=== PATIENT | male | born 1945 | race Caucasian/White ===

== ENCOUNTER 2020-07-08 15:43 | Emergency (ER) | payer MEDICARE, OTHER, SELFPAY ==
--- NOTE | 2020-07-08 15:51 | ECG_ITS ---
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 Measurements Intervals [place] Rate: 79 P: 31 SC: 142 QRS: 33 QRSD: 93 T: 23 QT: 351 QTc: 403 Interpretive Statements SINUS RHYTHM WITH OCCASIONAL VENTRICULAR PREMATURE COMPLEXES NONSPECIFIC T-WAVE ABNORMALITY Compared to ECG 02/18/2019 08:07:19 No significant changes Electronically Signed On 07-08-2020 18:21:41 METAL PATTERNMAKER by Delmar Muhammad M.D. [id number]
--- NOTE | 2020-07-08 15:51 | XRR_ITS ---
PROCEDURE INFORMATION: Exam: XR Chest, 1 View Exam date and time: 07/08/2020 5:32 PM Age: 75 years old Clinical indication: Shortness of breath; Additional info: SOB TECHNIQUE: Imaging protocol: XR of the chest Views: 1 view. COMPARISON: CR Chest 1 [place] [id number] 02/18/2019 8:28 AM FINDINGS: Lungs: Diminished inspiratory effort. Potential small focus of patchy ground-glass interstitial lung disease left lung base which could reflect active interstitial pneumonitis. Evidence of antecedent granulomatous disease. Pleural space: Unremarkable. No pleural effusion. No pneumothorax. Heart/Mediastinum: Unremarkable. No cardiomegaly. Bones/joints: Unremarkable. XR/XR chest 1V portable [id number] IMPRESSION: 1. Diminished inspiratory effort. 2. Potential small focus of patchy ground-glass interstitial lung disease left lung base which could reflect active interstitial pneumonitis.
[2020-07-08 16:01] VITALS: BP 134/91; PULSE 96; RESP 16; TEMP 38.8; O2SAT 93; BMI 25.7
--- NOTE | 2020-07-08 17:26 | W.ED.COVID ---
HPI - COVID General: Chief Complaint: COVID symptoms Stated Complaint: sob/covid +/related complications Time Seen by Provider: 07/08/20 17:16 Source: patient Mode of arrival: ambulatory Limitations: no limitations Triage information: Has fever, cough or shortness of breath. Exposure to COVID + person last 14 days History of Present Illness: HPI Narrative: 75 yo male that states he tested positive for covid today. he has been having symptoms over the lasat 10 days. he states he has had a fever along with body aches. he has had no n/v he has had a cough and mild sob. Pt is in no distress here and pulse ox is 97 COVID 19 common symptoms: positive fever(s), chills, non-productive cough, dyspnea and body aches; negative headache(s), throat pain, nausea, vomiting or diarrhea COVID 19 other sytmptoms: negative chest pain COVID Results: No Data to Display Review of Systems Const: Reports: fever(s), chills and body aches Eyes: Denies: blurry vision or eye discomfort ENMT: Denies: throat pain or dental pain Card: Denies: chest pain Resp: Reports: dyspnea and non-productive cough GI: Denies: abdominal pain, nausea, vomiting or diarrhea : Denies: dysuria Musc: Denies: neck pain or back pain Skin/Breast: Denies: rash Neuro: Denies: headache(s) Psych: Denies: depression [place]/Lymph: Denies: easy bruising All/Imm: Denies: urticaria PFSH ED PFSH: Medical History ASHD (arteriosclerotic heart disease) Coronary artery disease HTN (hypertension) PVC (premature ventricular contraction) Surgical History S/P PTCA (percutaneous transluminal coronary angioplasty) Family History Father CAD (coronary artery disease) Sister Diabetes Social History Smoking and tobacco status: former smoker History of recent travel: No Physical Exam Const: COMMON NORMALS: no acute distress, patient oriented x3 and healthy appearing HENMT: COMMON NORMALS: normocephalic and atraumatic HEAD & SCALP: normocephalic and atraumatic Eye: COMMON NORMALS: Equal, round and reactive pupils present and EOMs intact bilaterally PUPIL: Yes Equal, round and reactive pupils present Neck/C-Spine: COMMON NORMALS: full ROM and supple Chest: COMMONS NORMALS: normal inspection of the chest and normal palpation of entire chest wall Resp: COMMON NORMALS: normal respiratory effort, No retractions, No use of accessory muscles and clear to auscultation bilaterally AUSCULTATION: clear to auscultation bilaterally Cardio: COMMON NORMALS: regular rate, regular rhythm and No murmurs present (Cardio) RATE: regular rate RHYTHM: regular rhythm GI: COMMON NORMALS: Normal to inspection, nondistended, normoactive bowel sounds present, Soft to palpation, non-tender and no masses PALPATION: Yes Soft to palpation Extremity: COMMON NORMALS: normal to inspection and full ROM Neuro: COMMON NORMALS: patient oriented x3, moves all extremities and no focal motor deficits Psych: COMMON NORMALS: mental status grossly normal, Normal thought process present and cooperative THOUGHT PROCESS: Normal thought process present Skin: COMMON NORMALS: no rashes or lesions noted and no wounds GENERAL SKIN EXAM: no rashes or lesions noted Course Vital Signs: Vital signs: Vital Signs Temperature 101.9 F H 07/08/20 16:01 Pulse Rate 96 07/08/20 16:01 Respiratory Rate 16 07/08/20 16:01 Blood Pressure 134/91 07/08/20 16:01 Pulse Oximetry 92 07/08/20 17:31 MDM - COVID MDM Narrative: Medical decision making narrative: Patient presents here with Covid pneumonia. Patient is well-appearing here and is inflammatory markers are normal and he has no signs of pulmonary embolism. Patient's pulse ox here has been 97% on room air. We will start him on Keflex and Decadron. He is stable for discharge is to monitor his oxygen at home and return if worsening. He is to follow-up with his PCP. Lab Data: Labs: Lab Results 07/08/20 07/08/20 07/08/20 Range/Units 17:44 17:44 17:44 WBC 7.4 (4.0-10.0) 10^3/ uL RBC 5.05 (4.1-5.3) 10^6/u L Hgb 14.2 (11.7-16.6) g/dL Hct 44.6 (42.0-52.0) % MCV 88.3 (80-94) fL MCH 28.1 (28.0-34.0) pg MCHC 31.8 (30.0-36.0) g/dL RDW 13.4 (12.1-15.1) % Plt Count 259 (130-400) 10^3/c mm MPV 10.0 (7.4-10.4) fL Neut % (Auto) 80.0 % Lymph % (Auto) 13.1 % [place] % (Auto) 6.3 % Eos % (Auto) 0.0 % Baso % (Auto) 0.3 % Neut # (Auto) 5.93 (1.8-7.7) 10^3/u L Lymph # (Auto) 1.0 (0.8-4.8) 10^3/u L [place] # (Auto) 0.5 (0.2-0.9) 10^3/u L Eos # (Auto) 0.0 (0.0-0.8) 10^3/u L Baso # (Auto) 0.0 (0.0-0.1) 10^3/u L Nucleated RBC % (a uto) 0 % Nucleated RBCs # 0.0 /100WBC Fibrinogen 458 (174-498) mg/dL Sodium 140 (136-145) mmol/L Potassium 3.9 (3.5-5.1) mmol/L Chloride 105 (98-107) mmol/L Carbon Dioxide 25 (22-29) mmol/L Anion Gap 13.9 (5-19) BUN 17 (8-23) mg/dL Creatinine 1.3 H (0.7-1.2) mg/dL GFR Calculation Not Reportable Glucose 104 (65-115) mg/dL Calculated Osmolal ity 292 (285-295) mOsm/k g Lactic Acid (0.5-2.2) mmol/L Calcium 8.5 (8.5-10.5) mg/dL Total Bilirubin 0.4 (0.15-1.2) mg/dL AST 14 (0-40) U/L ALT 11 (0-41) U/L Alkaline Phosphata se 44 (40-130) IU/L C-Reactive Protein 48.8 H (0.0-4.9) mg/L NT-Pro-B Natriuret Pep 648 H (0-125) pg/mL Total Protein 6.7 (6.6-8.7) g/dL Albumin 3.4 L (3.5-5.2) g/dL Globulin 3.3 (1.3-4.6) g/dL 07/08/20 Range/Units 17:44 WBC (4.0-10.0) 10^3/ uL RBC (4.1-5.3) 10^6/u L Hgb (11.7-16.6) g/dL Hct (42.0-52.0) % MCV (80-94) fL MCH (28.0-34.0) pg MCHC (30.0-36.0) g/dL RDW (12.1-15.1) % Plt Count (130-400) 10^3/c mm MPV (7.4-10.4) fL Neut % (Auto) % Lymph % (Auto) % [place] % (Auto) % Eos % (Auto) % Baso % (Auto) % Neut # (Auto) (1.8-7.7) 10^3/u L Lymph # (Auto) (0.8-4.8) 10^3/u L [place] # (Auto) (0.2-0.9) 10^3/u L Eos # (Auto) (0.0-0.8) 10^3/u L Baso # (Auto) (0.0-0.1) 10^3/u L Nucleated RBC % (a uto) % Nucleated RBCs # /100WBC Fibrinogen (174-498) mg/dL Sodium (136-145) mmol/L Potassium (3.5-5.1) mmol/L Chloride (98-107) mmol/L Carbon Dioxide (22-29) mmol/L Anion Gap (5-19) BUN (8-23) mg/dL Creatinine (0.7-1.2) mg/dL GFR Calculation Glucose (65-115) mg/dL Calculated Osmolal ity (285-295) mOsm/k g Lactic Acid 1.2 (0.5-2.2) mmol/L Calcium (8.5-10.5) mg/dL Total Bilirubin (0.15-1.2) mg/dL AST (0-40) U/L ALT (0-41) U/L Alkaline Phosphata se (40-130) IU/L C-Reactive Protein (0.0-4.9) mg/L NT-Pro-B Natriuret Pep (0-125) pg/mL Total Protein (6.6-8.7) g/dL Albumin (3.5-5.2) g/dL Globulin (1.3-4.6) g/dL Imaging Data: CXR: Radiologist's impression: [employer] [address] XRay Report Signed Patient: Mitul Hawkins Unit #: [id number] : 1945 Age/Sex: 75 / M ADM Date: 07/08/20 Loc: ER Room/Bed: Attending Dr: Ordering Provider/Ordering MD: Melisa Tapia MD Date of Service: 07/08/20 Procedure(s): XR chest 1V portable [id number] Accession Number(s): [id number] Report Number: [id number] PROCEDURE INFORMATION: Exam: XR Chest, 1 View Exam date and time: 07/08/2020 5:32 PM Age: 75 years old Clinical indication: Shortness of breath; Additional info: SOB TECHNIQUE: Imaging protocol: XR of the chest Views: 1 view. COMPARISON: CR Chest 1 [place] [id number] 02/18/2019 8:28 AM FINDINGS: Lungs: Diminished inspiratory effort. Potential small focus of patchy ground-glass interstitial lung disease left lung base which could reflect active interstitial pneumonitis. Evidence of antecedent granulomatous disease. Pleural space: Unremarkable. No pleural effusion. No pneumothorax. Heart/Mediastinum: Unremarkable. No cardiomegaly. Bones/joints: Unremarkable. XR/XR chest 1V portable [id number] IMPRESSION: 1. Diminished inspiratory effort. 2. Potential small focus of patchy ground-glass interstitial lung disease left lung base which could reflect active interstitial pneumonitis. EKG Data: EKG 1: Attestation: I personally reviewed and interpreted this EKG as follows: EKG interpretation date: 07/08/20 EKG interpretation time: 17:39 Interpretation: nsr hr [address] or t wave abnormalities qrs 93 qtc 386 COVID Results: No Data to Display Discharge Plan Discharge Patient Disposition: Home Clinical Impression: COVID-19 Condition: Stable Prescriptions: New Keflex 500 mg capsule 500 mg PO Q6H 7 Days Qty: 28 RF: 0 No Action clopidogrel [Plavix] 75 mg tablet 75 mg PO DAILY RF: 0 metoprolol tartrate 50 mg tablet 25 mg PO BID RF: 0 nitroglycerin [Nitrostat] 0.4 mg tablet, sublingual 0.4 mg SUBLINGUAL Q5M PRN (Reason: Chest Pain) RF: 0 pantoprazole 40 mg tablet,delayed release (DR/EC) 40 mg PO DIRECTED RF: 0 acetaminophen [Tylenol 8 Hour] 650 mg tablet extended release 650 mg PO Q12H PRN (Reason: Pain) RF: 0 Flomax 0.4 mg Capsule 0.4 mg PO DAILY RF: 0 Discharge Orders: Discharge Order (Routine); Ordered 07/08/20 Ordered By: Melisa Tapia Referrals: Mitul Yan DO [Primary Care Provider] - Discharge Diet: Advance as tolerated Discharge Activity: Resume usual activity Patient Instructions: Pneumonia (ED) Coding Level of Care Code 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
[2020-07-08] MEDS: acetaminophen 500 mg Tablet 1000 MG PO (17:30)
[2020-07-08 17:31] VITALS: O2SAT 92
[2020-07-08] MEDS: sodium chloride 0.9% 1,000 ML 999 ML IV (17:32)
[2020-07-08 17:55] LABS: Basophils % 0.3 %; Hematocrit 44.6 % (42.0-52.0); Hemoglobin 14.2 g/dL (11.7-16.6); Lymphocytes % 13.1 %; Mean Corpuscular HGB Conc 31.8 g/dL (30.0-36.0); Mean Corpuscular Hemoglobin 28.1 pg (28.0-34.0); Mean Corpuscular Volume 88.3 fL (80-94); Monocytes # 0.5 10^3/uL (0.2-0.9); Monocytes % 6.3 %; Neutrophils # 5.93 10^3/uL (1.8-7.7); Nucleated Red Blood Cells % 0 %; Platelet Count 259 10^3/cmm (130-400); Red Blood Count 5.05 10^6/uL (4.1-5.3); Red Cell Distribution Width 13.4 % (12.1-15.1); White Blood Count 7.4 10^3/uL (4.0-10.0)
[2020-07-08 18:21] LABS: Fibrinogen 458 mg/dL (174-498)
[2020-07-08 18:25] LABS: Lactic Sepsis W/Reflex 1.2 mmol/L (0.5-2.2)
[2020-07-08 18:37] LABS: Alanine Aminotransferase 11 U/L (0-41); Albumin Level 3.4 g/dL (3.5-5.2); Alkaline Phosphatase 44 IU/L (40-130); Anion Gap 13.9 (5-19); Aspartate Amino Transferase 14 U/L (0-40); Blood Urea Nitrogen 17 mg/dL (8-23); C Reactive Protein 48.8 mg/L (0.0-4.9); Calcium 8.5 mg/dL (8.5-10.5); Carbon Dioxide 25 mmol/L (22-29); Chloride 105 mmol/L (98-107); Globulin 3.3 g/dL (1.3-4.6); Glucose 104 mg/dL (65-115); NT Pro B Type Natriuretic Pept 648 pg/mL (0-125); Osmolality Calculated 292 mOsm/kg (285-295); Potassium 3.9 mmol/L (3.5-5.1); Sodium 140 mmol/L (136-145); Total Bilirubin 0.4 mg/dL (0.15-1.2); Total Protein 6.7 g/dL (6.6-8.7)
[2020-07-08] MEDS: dexamethasone 4 mg/mL INJ 10 MG IVP (20:03)
[2020-07-08 20:04] VITALS: BP 123/64; PULSE 78; RESP 16; O2SAT 99
--- NOTE | 2020-07-08 20:06 | PC.NURSE ---
Report from NGHIA Oneill
== END 2020-07-08 20:07 | disposition home or self-care (01) ==
PROVIDERS: Emergency Provider Emergency Medicine; PCP Internal Medicine
DX: U07.1 COVID-19 (principal); Z79.02 Long term (current) use of antithrombotics/antiplatelets; I25.10 Atherosclerotic heart disease of native coronary artery without angina pectoris; I10 Essential (primary) hypertension; Z87.891 Personal history of nicotine dependence
CPT/HCPCS: 12345; 71045; 80053; 83605; 83880; 85025; 85384; 86140; 93005; 96361; 96374; 99283; J1100; J7030

== ENCOUNTER 2020-11-13 14:38 | Outpatient (CLI) | payer MEDICARE, OTHER, SELFPAY ==
--- NOTE | 2020-11-13 14:50 | MR_ITS ---
WS: [id number] MRI LEFT KNEE HISTORY: LEFT KNEE PAIN COMPARISON: 10/14/2020 Anterior cruciate ligament: Mild intrasubstance degeneration in the distal ACL. No full-thickness tea r. Posterior cruciate ligament: Intact. Medial collateral ligament: Intact. Posterior lateral corner structures: Intact. Medial menisci: Intrasubstance degeneration in the posterior horn does not extend to an articular alda face. Anterior horn is normal. Lateral meniscus: Intact. Normal signal, size and shape. Extensor mechanism: Thinning and atrophy of the distal quadriceps tendon. Normal-sized patellar tendo n. Fluid and soft tissue: Small suprapatellar joint effusion. No Wade's cyst. Osseous and articular structures: Patellofemoral compartment: Very small superficial defect in the lateral patellar facet cartilage. No marrow edema or subluxation. Mild narrowing of patellofemoral joint space. Medial compartment: Mild narrowing of the medial compartment with thinning and fissuring of the carti kristina. No full-thickness defect. No underlying marrow edema or subchondral cysts. Lateral compartment: Minimal narrowing of the lateral compartment. No full-thickness cartilage defect . Subchondral cyst at the base of the tibial spines. MR/MR knee LT con* [id number] IMPRESSION: 1. 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 2. Mild atrophy of the distal quadriceps tendon. 3. No meniscal tear. 4. Intrasubstance degeneration of the distal ACL but no full-thickness tear.
== END 2020-11-13 14:39 | disposition home or self-care (01) ==
LOC: RADSHAW 14:43
PROVIDERS: PCP Internal Medicine; Visit Provider Nurse Practitioner Family
DX: M25.562 Pain in left knee (principal); M22.42 Chondromalacia patellae, left knee
CPT/HCPCS: 73721

== ENCOUNTER → 2022-04-28 10:51 | Outpatient (BNVA) | payer MEDICARE, OTHER, SELFPAY | PROVIDERS: PCP Internal Medicine; Visit Provider Internal Medicine Cardiovascular Disease | DX: I25.10 Atherosclerotic heart disease of native coronary artery without angina pectoris (principal); I11.0 Hypertensive heart disease with heart failure; I50.9 Heart failure, unspecified; I49.3 Ventricular premature depolarization; E78.5 Hyperlipidemia, unspecified; Z87.891 Personal history of nicotine dependence | CPT/HCPCS: 99214 ==

== ENCOUNTER → 2022-06-02 13:33 | Outpatient (BNVA) | payer MEDICARE, OTHER, SELFPAY | PROVIDERS: PCP Internal Medicine; Visit Provider Internal Medicine Cardiovascular Disease | DX: I49.3 Ventricular premature depolarization (principal); I25.10 Atherosclerotic heart disease of native coronary artery without angina pectoris; I11.0 Hypertensive heart disease with heart failure; I50.1 Left ventricular failure, unspecified; R55 Syncope and collapse; Z87.891 Personal history of nicotine dependence | CPT/HCPCS: 93225; 99214 ==

== ENCOUNTER 2022-07-02 13:10 | Outpatient (CLI) | payer MEDICARE, OTHER, SELFPAY ==
--- NOTE | 2022-07-02 13:00 | USCV_ITS ---
Mitul Hawkins Age: 77 Gender: M : 1945 Exam Date: 07/02/2022 14:13 Ordering Phys: Gisell Perez MD ([email or web address]) Technologist: Silvio Bautista Exam Location: [facility] [place] Indication: CHF/PVC'/SOB BP: 140 / 80 HR: 76 Rhythm: Other Technical Quality: Adequate MEASUREMENTS (Male / Female) Normal Values 2D ECHO LV Diastolic Diameter PLAX 4.7 cm 4.2 - 5.9 / 3.9 - 5.3 cm LV Systolic Diameter PLAX 3.2 cm IVS Diastolic Thickness 0.9 cm 0.6 - 1.0 / 0.6 - 0.9 cm IVS Systolic Thickness 0.8 cm LVPW Diastolic Thickness 0.8 cm 0.6 - 1.0 / 0.6 - 0.9 cm LVPW Systolic Thickness 0.7 cm LVOT Diameter 2.0 cm LV Ejection Fraction 2D Teich 60.5 % LV Ejection Fraction MOD 2C 63.7 % LV Ejection Fraction 2C AL 63.4 % LA Diameter 4.3 cm LA Width 4.4 cm LA Height 6.1 cm RA Width 4.5 cm RA Height 5.5 cm Aorta at Sinotubular Diameter 2.6 cm IVC Diameter 2.0 cm M-MODE Aortic Annulus Diameter 3.0 cm LA Ao Ratio MM 1.7 MV E Point Septal Separation 0.7 cm DOPPLER AV Peak Velocity 131.7 cm/s LVOT Peak Velocity 78.0 cm/s AV Area Cont Eq vti 1.9 cm squared AV Area Cont Eq pk 1.9 cm squared MV Peak Velocity 104.0 cm/s MV Area PHT 5.1 cm squared Mitral E to A Ratio 0.8 MV E' Velocity 37.0 cm/s Mitral E to MV E' Ratio 8.6 Mitral E to LV E' Lateral Ratio 6.3 Mitral E to LV E' Septal Ratio 13.5 TR Peak Velocity 380.0 cm/s TR Peak Gradient 57.8 mmHg TR Mean Velocity 286.1 cm/s TR Mean Gradient 33.9 mmHg TR Velocity Time Integral 90.3 cm Right Atrial Pressure 3.0 mmHg Pulmonary Artery Systolic Pressu 60.8 mmHg PV Peak Velocity 99.0 cm/s RV Acceleration Time 0.2 s RV Ejection Time 0.3 s RV AcT/ET 0.5 FINDINGS Left Ventricle Normal left ventricular size and systolic function, EF 61 %. No regional wall motion abnormalities. Grade I/IV diastolic dysfunction (abnormal relaxation filling pattern), normal to mildly elevated filling pressures. Right Ventricle The right ventricle is normal in size and function. Right Atrium The right atrium is normal in size. Left Atrium Mildly increased left atrial size. Mitral Valve Thickened mitral valve. Mild mitral valve regurgitation. Aortic Valve No gross abnormalities noted Tricuspid Valve Trace to mild tricuspid valve regurgitation. Pulmonic Valve Mild pulmonary valve regurgitation. Pericardium Normal pericardium without effusion. Aorta Normal aortic annulus size. IVC The inferior vena cava appears normal. CONCLUSIONS Normal left ventricular size and systolic function, EF 61 %. No regional wall motion abnormalities. Grade I/IV diastolic dysfunction (abnormal relaxation filling pattern), normal to mildly elevated filling pressures. Mildly increased left atrial size. Thickened mitral valve. Mild mitral valve regurgitation. Trace to mild tricuspid valve regurgitation. Mild pulmonary valve regurgitation. Moderate pulmonary hypertension with an estimated pulmonary artery peak systolic pressure of 61 mmHg and a mean pressure of 39 mmHg. There is no pericardial effusion. There are no intracardiac masses. Comparison with the previous study is difficult because of the difference in the technical quality. Dr April Duke MD [facility] (Electronically Signed) Final Date: 02 July 2022 21:42 S
== END 2022-07-02 13:11 | disposition home or self-care (01) ==
PROVIDERS: PCP Internal Medicine; Visit Provider Internal Medicine Cardiovascular Disease
DX: I49.3 Ventricular premature depolarization (principal); I50.9 Heart failure, unspecified; R06.02 Shortness of breath; I08.1 Rheumatic disorders of both mitral and tricuspid valves
CPT/HCPCS: 93306

== ENCOUNTER → 2023-01-26 10:55 | Outpatient (BNVA) | payer MEDICARE, OTHER, SELFPAY | PROVIDERS: PCP Internal Medicine; Visit Provider Internal Medicine Cardiovascular Disease | DX: I25.10 Atherosclerotic heart disease of native coronary artery without angina pectoris (principal); R07.9 Chest pain, unspecified; Z95.5 Presence of coronary angioplasty implant and graft; E78.5 Hyperlipidemia, unspecified; K21.9 Gastro-esophageal reflux disease without esophagitis; I11.0 Hypertensive heart disease with heart failure; I50.22 Chronic systolic (congestive) heart failure; I49.3 Ventricular premature depolarization; I50.9 Heart failure, unspecified; Z87.891 Personal history of nicotine dependence | CPT/HCPCS: 93005; 99214 ==

== ENCOUNTER → 2023-06-30 13:06 | Outpatient (BNVA) | payer OTHER, SELFPAY | PROVIDERS: PCP Internal Medicine; Visit Provider Dermatology | DX: L82.0 Inflamed seborrheic keratosis (principal); Z85.820 Personal history of malignant melanoma of skin; D48.5 Neoplasm of uncertain behavior of skin; L30.0 Nummular dermatitis; L57.8 Other skin changes due to chronic exposure to nonionizing radiation; L85.3 Xerosis cutis; L81.4 Other melanin hyperpigmentation; L57.0 Actinic keratosis | CPT/HCPCS: 11102; 17000; 17110; 99214 ==

== ENCOUNTER → 2023-07-28 10:11 | Outpatient (BNVA) | payer OTHER, SELFPAY | PROVIDERS: PCP Internal Medicine; Visit Provider Dermatology | DX: D03.61 Melanoma in situ of right upper limb, including shoulder (principal) | CPT/HCPCS: 11604; 12034 ==

== ENCOUNTER → 2023-08-05 09:39 | Outpatient (BNVA) | payer OTHER, SELFPAY | PROVIDERS: PCP Internal Medicine; Visit Provider Nurse Practitioner Family | DX: T81.40XA Infection following a procedure, unspecified, initial encounter (principal); X58.XXXA Exposure to other specified factors, initial encounter | CPT/HCPCS: 99213 ==

== ENCOUNTER → 2023-11-08 10:23 | Outpatient (BNVA) | payer MEDICARE, OTHER, SELFPAY | PROVIDERS: PCP Internal Medicine; Visit Provider Nurse Practitioner Family | DX: I25.10 Atherosclerotic heart disease of native coronary artery without angina pectoris (principal); I11.0 Hypertensive heart disease with heart failure; I50.32 Chronic diastolic (congestive) heart failure; Z87.891 Personal history of nicotine dependence | CPT/HCPCS: 99214 ==

== ENCOUNTER 2024-05-31 15:03 | Emergency (ER) | payer OTHER, MEDICARE, SELFPAY ==
[2024-05-31] VITALS (18 sets, daily range): BP systolic 130–159; BP diastolic 67–80; PULSE 38–74; RESP 14–19; TEMP 36.5; O2SAT 94–99; BMI 24.7
--- NOTE | 2024-05-31 15:06 | XR_ITS ---
WS: [id number] Portable AP upright chest, 05/31/2024 Clinical Data: cp Comparison: Portable chest, 07/08/2020 Findings: No nodules, masses or effusions are seen. The heart is normal. The pulmonary vascularity is not increased. No pneumonia or pneumothorax is seen. The aortic arch and descending thoracic aorta s how mild calcification and tortuosity. There are monitor leads on the chest wall. XR/XR chest 1V portable [id number] Impression: Atherosclerosis.
--- NOTE | 2024-05-31 15:06 | ECG_ITS ---
[facility]: 2024-05-31 Pat Name: Mitul Hawkins Department: Room: Gender: Male Schedule Manager: : 1945 Requested By: Melisa Tapia Order Number: [id number] Tomeka MD: April Duke M.D. Measurements Intervals [place] Rate: 71 P: 63 AK: 135 QRS: 54 QRSD: 96 T: 40 QT: 376 QTc: 409 Interpretive Statements SINUS RHYTHM WITH FREQUENT VENTRICULAR PREMATURE COMPLEXES NONSPECIFIC T-WAVE ABNORMALITY ABNORMAL RHYTHM ECG Compared to ECG 01/26/2023 11:01:13 T-wave abnormality now present Electronically Signed On 05-31-2024 16:45:28 CDT by April Duke M.D. [email or web address]
--- NOTE | 2024-05-31 15:28 | W.ED.CHESTPA ---
HPI - Chest Pain General: Chief Complaint: Chest Pain Stated Complaint: Va sent CP yesterday Time Seen by Provider: 05/31/24 15:05 Source: patient Mode of arrival: ambulatory Limitations: no limitations History of Present Illness: 78-year-old male states he has been had chest pain 3 days ago. He states he had 1 episode today states pain 3 days ago relieved with nitro he states pain was minimal and short lasting earlier today has had no pain this afternoon. He states had some mild dyspnea with exertion. He denies any fever denies any cough. Rates his pain a 0 out of 10 currently Associated symptoms: Reports dyspnea; Deny abdominal pain, fever(s), nausea or vomiting Related Data Home Medications Medication Instructions Recorded Confirmed acetaminophen 650 mg 650 mg PO Q12H PRN Pain 10/05/19 11/08/23 tablet,extended release (Tylenol 8 Hour) nitroglycerin 0.4 mg sublingual 0.4 mg sublingual Q5M PRN Chest 10/05/19 11/08/23 tablet (Nitrostat) Pain omeprazole 40 mg capsule,delayed 40 mg PO .HS 06/02/22 11/08/23 release phytonadione (vitamin K1) 100 mcg 100 mcg PO DAILY 06/02/22 11/08/23 tablet Previous Rx's Medication Instructions Recorded clopidogrel 75 mg tablet (Plavix) 75 mg PO DAILY #90 tabs 04/28/22 tamsulosin 0.4 mg capsule (Flomax) 0.4 mg PO DAILY #90 caps 04/28/22 metoprolol tartrate 50 mg tablet 25 mg (1/2 x 50 mg) PO BID #90 tabs 06/19/22 losartan 25 mg tablet 25 mg PO DAILY #90 tabs 11/10/23 Allergies Allergy/AdvReac Type Severity Reaction Status Date / Time Penicillins Allergy Unknown Unknown Verified 11/08/23 10:42 Review of Systems Const: Denies: fever(s), chills, body aches or change in appetite ENMT: Denies: throat pain or dental pain Card: Reports: chest pain Resp: Reports: dyspnea GI: Denies: abdominal pain, nausea, vomiting or diarrhea Musc: Denies: neck pain or back pain Skin/Breast: Denies: rash Neuro: Denies: headache(s) PFSH ED PFSH: Medical History History of malignant melanoma CHF NYHA class II Hyperlipidemia GERD (gastroesophageal reflux disease) History of 2019 novel coronavirus disease (COVID-19) Coronary artery disease Stable doing fine from a coronary disease perspective HTN (hypertension) ASHD (arteriosclerotic heart disease) PVC (premature ventricular contraction) Surgical History S/P cholecystectomy History of throat surgery dilated multiple times S/P shoulder surgery left rotator cuff repair History of cardiac radiofrequency ablation S/P PTCA (percutaneous transluminal coronary angioplasty) Family History Father CAD (coronary artery disease) Sister Diabetes Social History Smoking and tobacco/nicotine status: former use of tobacco/nicotine Physical Exam Const: COMMON NORMALS: no acute distress, patient oriented x3 and healthy appearing HENMT: COMMON NORMALS: normocephalic and atraumatic HEAD & SCALP: normocephalic and atraumatic Neck/C-Spine: COMMON NORMALS: full ROM and supple Chest: COMMONS NORMALS: normal inspection of the chest Resp: COMMON NORMALS: normal respiratory effort, No retractions, No use of accessory muscles and clear to auscultation bilaterally AUSCULTATION: clear to auscultation bilaterally Cardio: COMMON NORMALS: regular rate, regular rhythm and No murmurs present (Cardio) RATE: regular rate RHYTHM: regular rhythm Extremity: COMMON NORMALS: normal to inspection and full ROM Neuro: COMMON NORMALS: patient oriented x3, moves all extremities and no focal motor deficits Psych: COMMON NORMALS: mental status grossly normal, Normal thought process present and cooperative THOUGHT PROCESS: Normal thought process present Skin: COMMON NORMALS: no rashes or lesions noted and no wounds GENERAL SKIN EXAM: no rashes or lesions noted Course Vital Signs: Vital signs: Vital Signs Temperature 97.7 F 05/31/24 15:06 Pulse Rate 63 05/31/24 19:20 Respiratory Rate 17 05/31/24 19:00 Blood Pressure 147/80 05/31/24 19:20 Pulse Oximetry 96 05/31/24 19:20 Oxygen Delivery Me thod Room Air 05/31/24 15:06 MDM - Chest Pain Medical Decision Making Patient presents for chest pains atypical in nature he has been chest pain-free here. His D-dimer is negative for age-adjusted D-dimer troponins here showed less than 4 delta change she has been pain-free here is no signs of ACS no signs of pulm embolism he is stable for discharge we will get him follow-up with cardiology he is return if worsening he understands agrees to plan Medical Records I reviewed the patient's medical records. Lab Data I reviewed the patient's lab results. 05/31/24 15:22 05/31/24 15:22 Radiology Impressions Chest X-Ray 05/31/24 15:06 Impression: Atherosclerosis. Laboratory Results WBC 6.76 10^3/uL (3.29-11.43) 05/31/24 15: RBC 5.15 10^6/uL (3.85-5.65) 05/31/24 15: Hgb 14.40 g/dL (11.27-16.99) 05/31/24 15: Hct 46.0 % (37-53) 05/31/24 15: MCV 89.3 fl (82-101) 05/31/24 15:22 MCH 28.0 pg (27-33) 05/31/24 15: MCHC 31.3 g/dL (30-55) 05/31/24 15: RDW 13.8 % (12.1-15.1) 05/31/24 15: Plt Count 255 10^3/cmm (157-399) 05/31/24 15: MPV 10.3 fL (7.4-10.4) 05/31/24 15: Neut % (Auto) 48.5 % 05/31/24 15: Lymph % (Auto) 36.4 % 05/31/24 15: [place] % (Auto) 11.7 % 05/31/24 15: Eos % (Auto) 2.5 % 05/31/24 15: Baso % (Auto) 0.6 % 05/31/24 15: Neut # (Auto) 3.28 10^3/uL (1.8-7.7) 05/31/24 15: Lymph # (Auto) 2.5 10^3/uL (0.8-4.8) 05/31/24 15:22 [place] # (Auto) 0.8 10^3/uL (0.2-0.9) 05/31/24 15:22 Eos # (Auto) 0.2 10^3/uL (0.0-0.8) 05/31/24 15:22 Baso # (Auto) 0.0 10^3/uL (0.0-0.1) 05/31/24 15:22 Nucleated RBC % (auto) 0 % 05/31/24 15:22 Nucleated RBCs # 0.0 /100WBC 05/31/24 15:22 PT 13.00 SECONDS (12.1-14.9) 05/31/24 15:22 INR 0.96 (0.8-1.2) 05/31/24 15:22 D-Dimer 0.65 ug/mLFEU (0-0.59) H 05/31/24 15:22 Sodium 142 mmol/L (136-145) 05/31/24 15:22 Potassium 4.3 mmol/L (3.5-5.1) 05/31/24 15:22 Chloride 106 mmol/L (98-107) 05/31/24 15:22 Carbon Dioxide 27 mmol/L (22-29) 05/31/24 15:22 Anion Gap 13.3 (5-19) 05/31/24 15:22 BUN 15 mg/dL (8-23) 05/31/24 15:22 Creatinine 1.3 mg/dL (0.7-1.2) H 05/31/24 15:22 GFR Calculation Not Reportable 05/31/24 15:22 Glucose 84 mg/dL (65-115) 05/31/24 15:22 Calculated Osmolality 294 mOsm/kg (285-295) 05/31/24 15:22 Calcium 9.0 mg/dL (8.5-10.5) 05/31/24 15:22 Total Bilirubin 0.3 mg/dL (0.15-1.2) 05/31/24 15:22 AST 17 U/L (0-40) 05/31/24 15:22 ALT 13 U/L (0-41) 05/31/24 15:22 Alkaline Phosphatase 60 U/L (40-130) 10/16/24 15:22 Troponin T Baseline 26 ng/L (0-15) H 05/31/24 15:22 Troponin T 120 Minute 27.56 ng/L (0-15) H 05/31/24 17:46 Delta Troponin T 1.56 ABS# (0-10) 05/31/24 17:46 NT-Pro-B Natriuret Pep 632 pg/mL (0-450) H 05/31/24 15:22 Total Protein 6.5 g/dL (6.6-8.7) L 05/31/24 15:22 Albumin 4.0 g/dL (3.5-5.2) 05/31/24 15:22 Globulin 2.5 g/dL (1.3-4.6) 05/31/24 15:22 Lipase 27 U/L (13-60) 05/31/24 15:22 All radiology interpretation(s) finalized by discharge EKG Data EKG 1: I personally reviewed and interpreted this EKG as follows: EKG interpretation date: 05/31/24 EKG interpretation time: 15:03 Interpretation: nsr hr [address] elevation qrs 96 qtc 398 EKG 2: I personally reviewed and interpreted this EKG as follows: EKG interpretation date: 05/31/24 EKG interpretation time: 18:03 Interpretation: sinus jatin hr [address] elevation qrs 92 qtc 421 Clincial Decision Support The following clinical decision support tools were used to aid in care of the patient HEART Score -> History: Slightly Suspicous, EKG: Normal, Age: 65 or more yrs, Risk Factors: >/=3 Risk Factors, Troponin: Baseline Trop 16-45 ng/L. Resulting HEART Score: 5. Discharge Plan Discharge Patient Disposition: Home Clinical Impression: Chest pain Condition: Stable Prescriptions: No Action clopidogrel [Plavix] 75 mg tablet 75 mg PO DAILY Qty: 90 3RF Flomax 0.4 mg capsule 0.4 mg PO DAILY Qty: 90 2RF nitroglycerin [Nitrostat] 0.4 mg tablet, sublingual 0.4 mg SUBLINGUAL Q5M PRN (Reason: Chest Pain) acetaminophen [Tylenol 8 Hour] 650 mg tablet extended release 650 mg PO Q12H PRN (Reason: Pain) omeprazole 40 mg capsule,delayed release(DR/EC) 40 mg PO .HS phytonadione (vitamin K1) 100 mcg tablet 100 mcg PO DAILY metoprolol tartrate 50 mg tablet 25 mg PO BID Qty: 90 3RF losartan 25 mg tablet 25 mg PO DAILY Qty: 90 3RF Discharge Orders: Discharge ED (Routine); Ordered 05/31/24 Ordered By: Melisa Tapia Referrals: Paul Osman MD [Physician] - 4-7 days Mitul Yan DO [Primary Care Provider] - Discharge Diet: Advance as tolerated Discharge Activity: Resume usual activity Patient Instructions: Chest Pain (ED) Coding Level of Care 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
[2024-05-31 15:29] LABS: Basophils % 0.6 %; Eosinophils # 0.2 10^3/uL (0.0-0.8); Eosinophils % 2.5 %; Lymphocytes # 2.5 10^3/uL (0.8-4.8); Lymphocytes % 36.4 %; Mean Corpuscular HGB Conc 31.3 g/dL (30-55); Mean Corpuscular Volume 89.3 fl (82-101); Mean Platelet Volume 10.3 fL (7.4-10.4); Monocytes # 0.8 10^3/uL (0.2-0.9); Monocytes % 11.7 %; Neutrophils # 3.28 10^3/uL (1.8-7.7); Neutrophils % 48.5 %; Nucleated Red Blood Cells % 0 %; Platelet Count 255 10^3/cmm (157-399); Red Blood Count 5.15 10^6/uL (3.85-5.65); Red Cell Distribution Width 13.8 % (12.1-15.1); White Blood Count 6.76 10^3/uL (3.29-11.43)
[2024-05-31 15:42] LABS: INR 0.96 (0.8-1.2)
[2024-05-31 15:49] LABS: Alanine Aminotransferase 13 U/L (0-41); Alkaline Phosphatase 60 U/L (40-130); Anion Gap 13.3 (5-19); Aspartate Amino Transferase 17 U/L (0-40); Blood Urea Nitrogen 15 mg/dL (8-23); Carbon Dioxide 27 mmol/L (22-29); Chloride 106 mmol/L (98-107); Creatinine Clr Calc Pharmacy 56.7654; Globulin 2.5 g/dL (1.3-4.6); Glucose 84 mg/dL (65-115); Lipase 27 U/L (13-60); Osmolality Calculated 294 mOsm/kg (285-295); Potassium 4.3 mmol/L (3.5-5.1); Sodium 142 mmol/L (136-145); Total Bilirubin 0.3 mg/dL (0.15-1.2); Total Protein 6.5 g/dL (6.6-8.7)
[2024-05-31 15:51] LABS: Troponin(5th) Baseline 26 ng/L (0-15)
[2024-05-31 15:53] LABS: D Dimer 0.65 ug/mLFEU (0-0.59)
[2024-05-31 16:10] LABS: NT Pro B Type Natriuretic Pept 632 pg/mL (0-450)
--- NOTE | 2024-05-31 18:03 | ECG_ITS ---
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 Measurements Intervals [place] Rate: 58 P: 54 WI: 161 QRS: 44 QRSD: 92 T: 40 QT: 425 QTc: 419 Interpretive Statements SINUS BRADYCARDIA WITH OCCASIONAL VENTRICULAR PREMATURE COMPLEXES Compared to ECG 05/31/2024 15:03:29 Sinus rhythm no longer present T-wave abnormality no longer present Electronically Signed On 06-01-2024 01:01:03 CDT by April Duke M.D. [email or web address]
[2024-05-31 18:13] LABS: Troponin 5 2HR 27.56 ng/L (0-15); Troponin 5 2HR Delta 1.56 ABS# (0-10)
--- NOTE | 2024-06-01 07:55 | DCPLANNER ---
messaged heart care to see if a sooner appt is avail for er f/u
== END 2024-05-31 19:22 | disposition home or self-care (01) ==
PROVIDERS: Emergency Provider Emergency Medicine; PCP Internal Medicine
DX: R07.9 Chest pain, unspecified (principal); I11.0 Hypertensive heart disease with heart failure; I50.9 Heart failure, unspecified; I25.10 Atherosclerotic heart disease of native coronary artery without angina pectoris; Z85.820 Personal history of malignant melanoma of skin; Z87.891 Personal history of nicotine dependence; Z79.02 Long term (current) use of antithrombotics/antiplatelets; R00.1 Bradycardia, unspecified; E78.5 Hyperlipidemia, unspecified
CPT/HCPCS: 36415; 71045; 80053; 83690; 83880; 84484; 85025; 85378; 85610; 93005; 99285

== ENCOUNTER 2024-06-05 06:00 | Outpatient (CLI) | payer OTHER, SELFPAY | END 2024-06-05 06:01 | disposition home or self-care (01) | LOC: RAD 07-27 07:32 | PROVIDERS: PCP Internal Medicine; Visit Provider Internal Medicine Cardiovascular Disease | DX: I25.10 Atherosclerotic heart disease of native coronary artery without angina pectoris (principal); R07.9 Chest pain, unspecified; R06.02 Shortness of breath; I50.32 Chronic diastolic (congestive) heart failure; Z87.891 Personal history of nicotine dependence | CPT/HCPCS: 99214 ==

== ENCOUNTER 2024-07-17 07:22 | Outpatient (CLI) | payer OTHER, SELFPAY ==
[2024-07-17 07:47] VITALS: BMI 24.3
--- NOTE | 2024-07-17 07:48 | ECG_ITS ---
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 The perfusion scan will be documented separately. DATA: Baseline heart rate was 62 beats per minute. Baseline blood pressure was 126/87 millimeters of mercury. Target heart rate was 142. Maximum heart rate achieved was 82. which was 57% of the predicted target heart rate. Maximum blood pressure was 147/77 millimeters of mercury. The reason for ending the test was [completion of the protocol]. The patient did not experience any symptoms. [] ELECTROCARDIOGRAM: BASELINE: Sinus rhythm. Normal axis, short CA interval, otherwise no significant ST ST changes suggestive of ischemia. Frequent PVCs. EXERCISE: After Lexiscan injection, frequent PVCs were noted otherwise no ST-T changes suggestive of ischemic noted. CONCLUSION: Please note due to baseline abnormality of the EKG specificity and sensitivity of the EKG portion of LexiScan MIBI stress test will be low 1. [EKG not suggestive of ischemia] 2. [Lexiscan injection unremarkable]. 3. Perfusion scan will be documented separately. [] Electronically Signed On 07-18-2024 23:45:20 SCHEDULER by PAUL OSMAN [id number]
--- NOTE | 2024-07-17 07:48 | NMCV_ITS ---
NM maylin perf SPECT r/s* [id number] Mitul Hawkins Age: 79 Gender: M : 1945 Exam Date: 07/17/2024 08:38 Ordering Phys: Paul Osman MD ([email or web address]) Technologist: MEKA Lewis Exam Location: [facility] Indications: cp STRESS TEST [facility] IMAGE PROTOCOL Rest/Stress 1 Lexiscan Day Radiopharmaceutical Dose (mCi) Administration Site Administered by Rest: Tc-99m 10.8 IV MEKA Ng Sestamibi Stress:Tc-99m 32.7 IV MEKA Lewis Sestamimarilee Rest: 17-Jul-2024 60 Discovery 630 Stress: 17-Jul-2024 30 Discovery 630 0.4mg Lexiscan. Images obtained in supine and prone position. SPECT RESULTS Technical Quality: Good Raw Data Analysis: Normal Image Corrections: No attenuation or motion correction applied Summed Stress Score: 8 Summed Rest Score: 5 Summed Difference Score: 3 PERFUSION FINDINGS Large area of mostly fixed perfusion defect seen in inferior and inferolateral alexis. This is consistent with large area of prior infarct with small to medium sized area of klarissa-infarct ischemia left circumflex artery and RCA territories. FUNCTIONAL RESULTS (calculated via Gated SPECT) Stress Image LV EF (%): 36 Stress EDV (mL):159 TID: 1.07 Stress ESV (mL):101 FUNCTIONAL FINDINGS: LV systolic function is moderately reduced with EF of 36% IMPRESSIONS 1. Abnormal myocardial perfusion imaging with large area of prior infarct with small to medium sized area of klarissa-infarct ischemia seen in inferior and inferolateral alexis. 2. LV systolic function is moderately reduced. Delmar Muhammad MD (Electronically Signed) Final Date: 19 July 2024 11:32 S
[2024-07-17] MEDS: regadenoson 0.4 Mg/5 ml Syringe IVP (10:31)
[2024-07-17 10:42] VITALS: BP 129/73; PULSE 77
== END 2024-07-17 07:23 | disposition home or self-care (01) ==
LOC: CDL 07:23
PROVIDERS: PCP Internal Medicine; Visit Provider Internal Medicine Cardiovascular Disease
DX: R07.9 Chest pain, unspecified (principal); R06.02 Shortness of breath; R94.39 Abnormal result of other cardiovascular function study
CPT/HCPCS: 36415; 78452; 93017; 93306; 96374; A9500; J2785

== ENCOUNTER 2024-10-12 08:54 | Outpatient (CLI) | payer OTHER, SELFPAY ==
[2024-10-12] VITALS (14 sets, daily range): BP systolic 152–172; BP diastolic 67–86; PULSE 56–76; RESP 14–20; TEMP 36.5; O2SAT 94–100; BMI 24.7
--- NOTE | 2024-10-12 09:00 | XACV_ITS ---
Ht: 188 cm Wt: 88 kg BSA: 2.14 m2 Gender: Male : 1945 Any Known Allergies: Penicillins Exam Priority: Routine Indication(s): - Abnormal nuclear perfusion study Procedure(s): Procedure Description: Diagnostic procedure Procedure Description: Left Heart Catheterization Procedure Description: Left ventriculography Procedure Description: Coronary IVUS Procedure Description: Miscellaneous Procedure Description: ACT Procedure Description: Coronary Angiography Jacqui PARKER; Diagnostic Findings * Left Main: obstructive 60% stenosis, TO: 3 flow, IVUS performed: area of stenosis is 77 mm2, culprit lesion. * Mid Left Anterior Descending: moderate 50% stenosis, TO: 3 flow. * Proximal Right Coronary Artery: moderate 50% stenosis, TO: 3 flow. * Mid Right Coronary Artery: obstructive 70% stenosis, TO: 3 flow. * Mid Circumflex: obstructive 60% stenosis, TO: 3 flow. * Coronary angiography shows right dominance. * IVUS was performed which revealed minimal luminal area was 4.0 mm2, minimum diameter was 2.1 mm, maximum diameter was 2.4 mm there was 77% stenosis. Patient was noted to have moderate LV dysfunction 40% ejection fraction. Patient main complaint was unexplained shortness of breath with deterioration of the function.. Conclusions 1. There is obstructive coronary artery disease with four vessel disease. 2. Moderate left ventricular systolic dysfunction. Ejection fraction of 35%. Recommendations * Continue current medical management and risk factor modification. Diagnostic RX Recommendation: CABG Ventriculography Ejection Fraction: 40.0 % Pressures Phase:Rest AO : 129 / 66 ( 94 ) @ 11:32:00 AM / ( -12 ) @ 11:42:00 AM 167 / 67 ( 106 ) @ 12:04:00 PM 169 / 68 ( 107 ) @ 12:04:00 PM LV : 173 / 14 / 23 @ 12:03:00 PM 169 / 13 / 21 @ 12:04:00 PM 165 / 13 / 21 @ 12:04:00 PM Valves Phase:DefaultPhase AV : 0.0 @ 12:14:29 PM AV Mean Gradient: 0.0 @ 12:14:29 PM Clinical Evaluation EBL: 5mL-10mL Procedural Details Procedure Consent Obtained. Admit Source: Out Patient. Pre-Procedure Time Out. Identified patient by full name and date of as verbalized by the patient/guarantor. Does the consent match the physician's order: Yes. Accurate & Complete Informed Consent: Yes. Inpatient/Outpatient History & Physical on Chart: Yes. If H&P is completed, is and addenduem needed: No; If yes, is the addendum complete: N/A. Visualize and Verify Site with Patient/Guarantor: N/A. Relevant Radiology Images available: N/A. The risks, benefits, and alternatives of sedation and/or procedure were discussed by physician. The patient agrees to continue. Procedure started. [facility] Clinical Fraility Score: 3: Managing Well. Ob/Gyn Indications: Other. Chest Pain Symptom Assessment: Typical Angina Symptoms. Cardiovascular Instability: No. Correct patient, site and procedure confirmed by cath team. Current diagnosis: Chest Pain; Abnormal stress test. PERRLA. 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 Lungs clear x 5 lobes. IV Site on Arrival: 20 gauge in the left anticubital. IV Fluids: 0.9% NaCl at KVO. 0 mL infused prior to cath lab manager. Pre Procedural Pulses: bilateral radial was 3+. Pre Procedural Pulses: bilateral posterior tibial was 1+. Pre Procedural Pulses: bilateral dorsalis pedis was 2+. Oxygen started at 3liters/min via nasal canula. right groin was prepped with chloroprep then draped in the usual sterile fashion. right radial was prepped with chloroprep then draped in the usual sterile fashion. Physician notified. Baseline sample Acquired. HR: 60 BPM. Physician arrived. Physician scrubbed in. Immediate Pre-Procedure Time Out. Correct Patient: Yes; Correct Procedure: Yes; Correct Site: Yes; Correct Patient Position: Yes; Correct Supplies: Yes; Dried Flammable Prep: Yes; Blood Products Available: N/A;. Lidocaine 1% infiltrated to the right radial. Arterial access obtained. A 5 palauan TIG catheter in over wire. Multiple views taken of right coronary artery. Catheter redirected to the LCA. Multiple views taken of left coronary artery. Physician Review of films. Catheter removed over the exchange wire. 6 palauan CLS 3.5 guide catheter was inserted over the wire. Guide seated in the LCS. ACT drawn. Results 184 seconds. Therapeutic limits - pre-heparin administration 90-150 seconds and monitoring heparin during a vascular procedure >250 seconds. Runthrough guidewire was advanced through the guide catheter to lesion in the LM. Results checked. IVUS catheter inserted. IVUS of left main perfomed. IVUS catheter removed. Runthrough wire removed. Results checked. Guide catheter removed. A 6 palauan Angled Pig catheter in over wire. EDP Sample taken: LV 173/14,23; HR: 55 BPM; SpO2: 100%. LV gram performed in JONES @ 10 mL/second for a total of 30 mL. Patient EF: Abnormal. EDP Sample taken: LV 169/13,21; HR: 55 BPM; SpO2: 100%. Pullback taken: LV 165/13,21; AO 167/67(106); Mean: 0mmHg, Peak to Peak: 0mmHg, SEP: 14sec/min; HR: 58 BPM; SpO2: 100%. Catheter removed over the wire. [id number]. Physician scrubbed out. A TR Band was successful obtaining hemostatsis at the Right Radial artery insertion site. TR band placed. Hemostasis obtained. Post Procedure: Pulses reassessed and unchanged. PERRLA. 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 No VTE prophylaxis required. Medication waste: Lidocaine- 18 ml Nitro- 49.8 mg Heparin- 1000 units Versed- 1 mg Fentanyl- 50 mcg. Total IV fluids: 60 mL. Fluoro: 7:06. Contrast type used: Omnipaque 300 mg/mL, 150 mL bottle. Post-op diagnosis: CAD; Significant left main disease by IVUS. Complications: None. Estimated blood loss: 5mL-10mL. Responsiveness - Normal response to verbal stimuli; alert and oriented, PERRLA. Airway - Unaffected, no intervention required; spontaneous ventilation. Circulation: W/N/L, pulses unchanged. Nausea/Vomiting: No. Procedure completed. Patient transferred by bed to CPRU. Vital chart was stopped. Procedure started. Current Diagnosis : Chest Pain. Access Site Site: Right Radial artery Sheath Size: 6 Fr Hemostasis Method: TR Band Hemostasis Success: Successful Procedure Medications Start: 11:07 AM Stop: 11:07 AM Medication: Versed Amount: 1 mg Route: I.V. Start: 11:07 AM Stop: 11:07 AM Medication: Fentanyl Amount: 50 mcg Route: I.V. Start: 11:30 AM Stop: 11:30 AM Medication: Nitrogylcerin Amount: 200 mcg Route: I.A. Start: 11:31 AM Stop: 11:31 AM Medication: Heparin Amount: 5000 units Route: I.V. Start: 11:52 AM Stop: 11:52 AM Medication: Heparin Amount: 5000 units Route: I.V. I, the attending physician, have reviewed and verified all procedure medications. Yes, all medications given per verbal order History/Risk Factors Hypertension: Yes Dyslipidemia: Yes Peripheral Arterial Disease (PAD): No Myocardial Infarction (ID): No Obesity: No Renal Disease: No Prior Interventions PCI: Yes CABG: No Valve Surgery: No Date of PCI: 08/16/2016 Report Signatures Finalized by Paul Osman MD on 10/18/2024 01:51 PM
[2024-10-12] MEDS: aspirin 325 mg Tablet PO (09:10)
[2024-10-12] MEDS: diphenhydrAMINE 50 mg Capsule PO (09:10)
[2024-10-12 09:20] LABS: Basophils # 0.1 10^3/uL (0.0-0.1); Basophils % 0.9 %; Eosinophils # 0.3 10^3/uL (0.0-0.8); Eosinophils % 5.2 %; Hematocrit 42.4 % (37-53); Lymphocytes % 35.2 %; Mean Corpuscular HGB Conc 31.8 g/dL (30-55); Mean Corpuscular Hemoglobin 27.7 pg (27-33); Mean Corpuscular Volume 86.9 fl (82-101); Mean Platelet Volume 9.6 fL (7.4-10.4); Monocytes # 0.6 10^3/uL (0.2-0.9); Monocytes % 10.8 %; Neutrophils # 2.74 10^3/uL (1.8-7.7); Neutrophils % 47.6 %; Nucleated Red Blood Cells % 0 %; Platelet Count 247 10^3/cmm (157-399); Red Blood Count 4.88 10^6/uL (3.85-5.65); Red Cell Distribution Width 13.7 % (12.1-15.1); White Blood Count 5.76 10^3/uL (3.29-11.43)
[2024-10-12 09:38] LABS: Anion Gap 12.4 (5-19); Blood Urea Nitrogen 14 mg/dL (8-23); Calcium 8.8 mg/dL (8.5-10.5); Carbon Dioxide 28 mmol/L (22-29); Chloride 104 mmol/L (98-107); Creatinine Clr Calc Pharmacy 60.5198; Glucose 89 mg/dL (65-115); Osmolality Calculated 290 mOsm/kg (285-295); Potassium 4.4 mmol/L (3.5-5.1); Sodium 140 mmol/L (136-145)
--- NOTE | 2024-10-12 11:08 | P.HP_ITS ---
Same Day Surgery H&P Indication for Procedure/HPI DATE OF PROCEDURE: October 12, 2024 CHIEF COMPLAINT/INDICATIONFOR SURGICAL PROCEDURE: Angina equivalent unexplained shortness of breath abnormal stress test PREOP DIAGNOSIS: Abnormal stress test/angina equivalent unexplained shortness of PLANNED PROCEDURE: Operation Date: 10/12/24 10:00 Proposed Procedures p Cardiac Catheterization - [facility] w/wo LV & Coros(Left) - Paul Osman MD 79-year-old male past medical history significant for hypertension hyperlipidemia atherosclerotic heart disease premature ventricular conduction for unexplained shortness of breath underwent stress test turns out to be positive it is the reason he is here for left heart cath. Medications/Allergies* Home Medications ?Medication ?Instructions ?Recorded ?Confirmed ?Type acetaminophen 650 mg 650 mg PO Q12H PRN Pain 09/1710/11/24 History tablet,extended release (Tylenol 8 Hour) nitroglycerin 0.4 mg sublingual 0.4 mg sublingual Q5M PRN Chest 10/05/19 10/11/24 History tablet (Nitrostat) Pain omeprazole 40 mg capsule,delayed 40 mg PO .HS 06/02/22 10/12/24 History release phytonadione (vitamin K1) 100 mcg 100 mcg PO DAILY 10/12/24 History tablet Allergies/Adverse Reactions Allergy/AdvReac Type Severity Reaction Status Date / Time Penicillins Allergy Unknown Unknown Verified 06/05/24 12:39 Current Medications: Generic Name Dose Route Start Last Admin Trade Name Freq PRN Reason Stop Dose Admin Sodium Chloride 1,000 mls @ 50 mls/hr 10/12/24 09:00 10/12/24 09:05 Sodium Chloride 0.9% IV 10/13/24 04:59 Not Given .Q20H ONE Pertinent History/Comorbid Conditions* Medical History (Updated 06/08/24 @ 00:01 by RYDER Leger) Shortness of breath History of malignant melanoma CHF NYHA class II Hyperlipidemia GERD (gastroesophageal reflux disease) History of 2019 novel coronavirus disease (COVID-19) Coronary artery disease Stable doing fine from a coronary disease perspective HTN (hypertension) ASHD (arteriosclerotic heart disease) PVC (premature ventricular contraction) Surgical History (Updated 04/28/22 @ 12:33 by Gisell Perez MD) S/P cholecystectomy History of throat surgery dilated multiple times S/P shoulder surgery left rotator cuff repair History of cardiac radiofrequency ablation S/P PTCA (percutaneous transluminal coronary angioplasty) Family History (Updated 10/05/19 @ 10:39 by Constanza Drake RN) Diabetes Sister CAD (coronary artery disease) Father Social History Smoking and tobacco/nicotine status: former use of tobacco/nicotine Pertinent Exam Findings alert, oriented x 3, clear to auscultation bilaterally and regular rate & rhythm Conscious Sedation Assessment PATIENT ASSESSED PRIOR TO SEDATION, WITH NO CHANGE NOTED: Yes AIRWAY EVAL/ANESTHESIA PLAN: normal airway, ASA II, Risks, benefits & alternatives of sedation and/or procedure discussed and Patient agrees to continue as planned Recommendations Surgery/Procedure today Coding Level of Care Code Acute Code for Chg Fwd
[2024-10-12] MEDS: sodium chloride 0.9% 1,000 ML 100 ML IV (12:30)
[2024-10-12] MEDS: nitroglycerin 1 gm/inch oint Pkt 1 INCH TOPICAL (13:30)
--- NOTE | 2024-10-12 14:01 | PC.NURSE ---
report called to NGHIA Cassidy on CSU
--- NOTE | 2024-10-13 06:17 | PC.NURSE ---
1400 - Patient was transferred to CSU 102 for recovery due to prolongated recovery discharge. Charting was completed in phase II due to patient supposed to be recovered home from CPRU but no call staff to recover home due to extended after hours cases.
== END 2024-10-12 19:43 | disposition home or self-care (01) ==
LOC: CCL 12:33 → CSU 14:36
PROVIDERS: PCP Physician Assistant; Visit Provider Internal Medicine Cardiovascular Disease
DX: I25.10 Atherosclerotic heart disease of native coronary artery without angina pectoris (principal); E78.5 Hyperlipidemia, unspecified; I49.3 Ventricular premature depolarization; Z82.49 Family history of ischemic heart disease and other diseases of the circulatory system; Z87.891 Personal history of nicotine dependence; I11.0 Hypertensive heart disease with heart failure
CPT/HCPCS: 36415; 80048; 85025; 85347; 92978; 93458; 96374; 99152; 99153; C1753; C1769; C1887; C1894; J1644; J2250; J3010; J3490; J7030; J9999; Q0163; Q9967

== ENCOUNTER → 2024-11-02 14:48 | Outpatient (BNVA) | payer OTHER, SELFPAY | PROVIDERS: PCP Physician Assistant; Visit Provider Nurse Practitioner Family | DX: Z09 Encounter for follow-up examination after completed treatment for conditions other than malignant neoplasm (principal) | CPT/HCPCS: 99213 ==